=== PATIENT | female | born 1965 | race Caucasian/White ===

== ENCOUNTER 2020-01-19 09:30 | Outpatient (CLI) | payer OTHER, SELFPAY ==
--- NOTE | 2020-01-19 09:53 | RAD ---
LEFT SHOULDER 3 VIEWS: Date: 01/19/2020 INDICATION: Anterior left shoulder pain without history of injury or trauma. COMPARISON: None. FINDINGS: No acute fracture or subluxation is evident. 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 Visuali zed left lung is clear. IMPRESSION: No acute osseous abnormality. POS: [facility]
== END 2020-01-19 09:31 | disposition home or self-care (01) ==
LOC: MADRAD 09:30
PROVIDERS: ATTEND Family Medicine
DX: M25.512 Pain in left shoulder (principal)

== ENCOUNTER 2021-10-16 10:03 | Outpatient (CLI) | payer MEDICARE | END 2021-10-16 10:04 | disposition home or self-care (01) | LOC: MADEKG 10:03 | PROVIDERS: ATTEND Family Medicine | DX: I49.8 Other specified cardiac arrhythmias (principal) | CPT/HCPCS: 93005; 93010 ==

== ENCOUNTER 2024-02-07 16:09 | Emergency (ER) | payer MEDICARE ==
[2024-02-07] MEDS ORDERED: Bacitracin 1 PK ONE (16:38)
== END 2024-02-07 16:56 | disposition home or self-care (01) ==
LOC: MADERS 16:09
DX: T23.251A Burn of second degree of right palm, initial encounter (principal); X15.0XXA Contact with hot stove (kitchen), initial encounter; E11.9 Type 2 diabetes mellitus without complications
CPT/HCPCS: 99283